=== PATIENT | female | born 1970 ===

== ENCOUNTER 2018-03-29 12:19 | Outpatient (REF) | payer MEDICARE, SELFPAY ==
[2018-03-29 22:15] LABS: Abs Immature Grans 0.02 k/cumm (0.0-0.09); Absolute Basophil Count 0.02 k/cumm (0.0-0.2); Absolute Eosinophil Count 0.03 k/cumm (0.0-0.7); Absolute Lymphocyte Count 0.99 k/cumm (1.2-3.4); Absolute Monocyte Count 0.44 k/cumm (0.11-0.7); Absolute Neutrophil Count 4.64 k/cumm (1.2-6.7); Basophils % 0.3; Eosinophils % 0.5; HCT 31.9 % (36.0-46.0); HGB 9.8 g/dL (12.0-15.5); Immature Grans % 0.3; Lymphocytes % 16.1; Mean Corp. HGB Concentration 30.7 g/dL (32.0-36.0); Mean Corpuscular Hemoglobin 29.3 pg (27.0-33.0); Mean Corpuscular Volume 95.2 fL (80-95); Mean Platelet Volume 11.5 fL (8.0-11.0); Monocytes % 7.2; Neutrophils % 75.6; Platelet Count 114 x1000/uL (130-400); RBC 3.35 m/cumm (4.00-5.20); RBC Distribution Width 16.1 % (11.7-14.6); White Blood Cell Count 6.14 k/cumm (4.4-10.8)
[2018-03-29 22:33] LABS: ALT 43 U/L (12-78); AST 99 U/L (15-37); Alkaline Phosphatase 322 U/L (46-116); Anion Gap 12.1 mmol/L (3-11); BUN 1 mg/dL (7-18); Bilirubin, Total 0.2 mg/dL (0.2-1.0); CO2 23.9 mmol/L (21.0-32.0); CREATININE 0.53 mg/dL (0.55-1.02); Calcium 8.1 mg/dL (8.5-10.1); Chloride 101 mmol/L (98-107); Folate 10.3 ng/mL (8.6-20.0); Glucose 99 mg/dL (70-100); Potassium 3.9 mmol/L (3.5-5.1); Sodium 137 mmol/L (136-145); Total Protein 6.9 g/dL (6.4-8.2); Vitamin B12 626 pg/mL (193-986)
== END 2018-03-29 12:20 ==
LOC: NCHCN 12:19
PROVIDERS: PCP Registered Nurse; Visit Provider Registered Nurse
DX: D64.9 Anemia, unspecified (principal); R63.4 Abnormal weight loss; R74.8 Abnormal levels of other serum enzymes; R79.1 Abnormal coagulation profile
CPT/HCPCS: 80053; 82607; 82746; 85025

== ENCOUNTER 2018-04-19 12:24 | Outpatient (REF) | payer MEDICARE, SELFPAY ==
[2018-04-19 23:39] LABS: Abs Immature Grans 0.02 k/cumm (0.0-0.09); Absolute Basophil Count 0.02 k/cumm (0.0-0.2); Absolute Eosinophil Count 0.03 k/cumm (0.0-0.7); Absolute Lymphocyte Count 0.94 k/cumm (1.2-3.4); Absolute Monocyte Count 0.65 k/cumm (0.11-0.7); Absolute Neutrophil Count 5.21 k/cumm (1.2-6.7); Basophils % 0.3; Eosinophils % 0.4; HCT 30.3 % (36.0-46.0); Immature Grans % 0.3; Lymphocytes % 13.7; Mean Corp. HGB Concentration 29.7 g/dL (32.0-36.0); Mean Corpuscular Volume 97.7 fL (80-95); Mean Platelet Volume 11.9 fL (8.0-11.0); Monocytes % 9.5; Neutrophils % 75.8; Platelet Count 190 x1000/uL (130-400); RBC Distribution Width 18.1 % (11.7-14.6); White Blood Cell Count 6.87 k/cumm (4.4-10.8)
[2018-04-20 02:32] LABS: Anisocytosis 1+; Diff Comment Agrees w/ Instrument; Hypochromasia 1+
== END 2018-04-19 12:44 ==
LOC: NCHCN 12:24
PROVIDERS: PCP Registered Nurse; Visit Provider Registered Nurse
DX: R79.1 Abnormal coagulation profile (principal)
CPT/HCPCS: 85027; 85007

== ENCOUNTER 2018-06-20 13:48 | Outpatient (REF) | payer MEDICARE, SELFPAY ==
[2018-06-20 20:47] LABS: HCT 34.7 % (36.0-46.0); HGB 10.1 g/dL (12.0-15.5); Mean Corp. HGB Concentration 29.1 g/dL (32.0-36.0); Mean Corpuscular Hemoglobin 29.4 pg (27.0-33.0); Mean Corpuscular Volume 100.9 fL (80-95); Mean Platelet Volume 10.9 fL (8.0-11.0); Platelet Count 232 x1000/uL (130-400); RBC 3.44 m/cumm (4.00-5.20); RBC Distribution Width 20.2 % (11.7-14.6); White Blood Cell Count 9.51 k/cumm (4.4-10.8)
== END 2018-06-20 14:08 ==
LOC: NCHCN 13:48
PROVIDERS: PCP Registered Nurse; Visit Provider Registered Nurse
DX: D64.9 Anemia, unspecified (principal)
CPT/HCPCS: 85027